=== PATIENT | male | born 1955 | race Caucasian/White ===

== ENCOUNTER → 2020-06-29 | Outpatient (CLI) | payer MEDICARE, OTHER | LOC: KOH-I 14:12 | DX: F17.210 Nicotine dependence, cigarettes, uncomplicated (principal) | CPT/HCPCS: 71271 ==

== ENCOUNTER → 2021-08-03 | Outpatient (CLI) | payer MEDICARE | LOC: US 13:39 | DX: R10.30 Lower abdominal pain, unspecified (principal) | CPT/HCPCS: 76870 ==

== ENCOUNTER → 2021-08-19 | Outpatient (CLI) | payer MEDICARE ==
[~2021-08-19] MED LIST: ASPIRIN81 MG PO; HYDROCODON-ACE1 EAC4 PO; KLONOPIN1 MG PO; LIPITOR TAB 1010 MG PO; LYRICA150 MG PO; METFORMIN ER G500 MG PO; NITROSTAT0.4 MG SL; QUINAPRIL HCL5 MG PO
[2021-08-19 14:23] LABS: BUN/CREATININE RATIO 27 (0-10)
== END ==
LOC: OPSV2 12:26
PROVIDERS: Surgery
DX: Z01.818 Encounter for other preprocedural examination (principal); K40.90 Unilateral inguinal hernia, without obstruction or gangrene, not specified as recurrent
CPT/HCPCS: 80048; 93005

== ENCOUNTER → 2021-08-24 | Day surgery (SDC) | payer MEDICARE | END | disposition home or self-care (01) | LOC: OR 07:07 | DX: K40.90 Unilateral inguinal hernia, without obstruction or gangrene, not specified as recurrent (principal); E11.65 Type 2 diabetes mellitus with hyperglycemia; E78.5 Hyperlipidemia, unspecified; F17.210 Nicotine dependence, cigarettes, uncomplicated; Z88.0 Allergy status to penicillin; Z88.5 Allergy status to narcotic agent; Z79.82 Long term (current) use of aspirin; Z79.84 Long term (current) use of oral hypoglycemic drugs; Z79.899 Other long term (current) drug therapy | CPT/HCPCS: 82962; C1781; J1100; J2001; J2250; J2370; J2405; J2704; J3010; J7120 ==